=== PATIENT | male | born 1960 | race Caucasian/White ===

== ENCOUNTER 2019-02-01 12:16 | Emergency (ER) | payer OTHER ==
--- NOTE | 2019-02-01 12:54 | ER Document Report ---
ED Medical Screen (RME) - General Chief Complaint: Cold Symptoms Stated Complaint: NAUSEA/FEVER Time Seen by Provider: 02/01/19 12:37 Primary Care Provider: CARLO RIOS [Primary Care Provider] - Follow up as needed Notes: 58-year-old male presents to the emergency department for cough and fever x1 week. Patient states that his symptoms started last Sunday, they eased off on Sunday, and then returned on Sunday/Sunday/, only to ease off on Sunday and returning today. Patient states he has had fevers, uncontrollable shakes, persistent cough, and cold-like symptoms. Patient states that he is not a heavy drinker, last drink 10 days ago, and states he only drinks 2 or 3 drinks at a time and not daily. When pressed for confirmation patient said that he is not a daily heavy drinker. Patient states this tremulousness started 1 week ago and is new onset, never happening previous. Denies any nausea/vomiting/diarrhea, denies any acute shortness of breath or chest pain, denies any altered mental status or confusion, denies vision changes, denies acute weakness in any of his extremities, denies facial droop or slurred speech. EXAM: Nontoxic-appearing very slightly distressed. Lungs are clear to auscultation in all rosales. Heart rate 138 and regular, I reassessed after he been sitting for about 5 minutes and it was 120 and regular. I have greeted and performed a rapid initial assessment of this patient. A comprehensive ED assessment and evaluation of the patient, analysis of test results and completion of medical decision making process will be conducted by an additional ED providers. Past Medical History - Social History Chew tobacco use (# tins/day): No Frequency of alcohol use: None Drug Abuse: None Renal/ Medical History: Denies: Hx Peritoneal Dialysis Physical Exam - Vital signs Vitals: Temp Pulse Resp BP Pulse Ox 99.3 F 109 H 20 140/77 H 97 02/01/19 12:02/01/19 12:02/01/19 12:02/01/19 12:02/01/19 12:21 Course - Vital Signs Vital signs: Temp Pulse Resp BP Pulse Ox 99.3 F 109 H 20 140/77 H 97 02/01/19 12:02/01/19 12:02/01/19 12:21 02/01/19 12:21 02/01/19 12:21 Doctor's Discharge - Discharge [facility]errals: [facility] [[facility]] - Follow up as needed
[2019-02-01] MEDS ORDERED: THIAMINE HCL 100 MG in NORMAL SALINE 50 ML IV ONE ×2 (12:56→14:00)
[2019-02-01] MEDS ORDERED: NORMAL SALINE 1000 ML 1,000 ML IV ONE ×2 (12:57→13:51)
--- NOTE | 2019-02-01 13:24 | RADIOLOGY REPORT (SQ) ---
EXAM DESCRIPTION: CT HEAD WITHOUT COMPLETED DATE/TIME: 02/01/2019 1:14 pm REASON FOR STUDY: new onset generalized tremors COMPARISON: None. TECHNIQUE: Axial images acquired through the brain without intravenous contrast. Images reviewed wi th bone, brain and subdural windows. Images stored on PACS. All CT scanners at this facility use dose modulation, iterative reconstruction, and/or weight based d osing when appropriate to reduce radiation dose to as low as reasonably achievable (ALARA). [facility]: Dose Right [facility]: CareDose [facility]: Dose Right [facility]: Teradose 4D [facility]: [employer] RADIATION DOSE: CT Rad equipment meets quality standard of care and radiation dose reduction techniq ues were employed. CTDIvol: 53.2 mGy. DLP: 991 mGy-cm. mGy. LIMITATIONS: None. FINDINGS: VENTRICLES: Normal size and contour. CEREBRUM: No mass effect. No hemorrhage. No midline shift. Normal sheehan/white matter differentiatio n. No evidence for acute territorial infarction. CEREBELLUM: No mass effect. No hemorrhage. No alteration of density. No evidence for acute infarct ion. EXTRAAXIAL SPACES: No fluid collections. ORBITS AND GLOBE: Symmetrical contour of the globes. CALVARIUM: No depressed skull fracture. PARANASAL SINUSES: No air-fluid level. SOFT TISSUES: No hematoma. IMPRESSION: NO ACUTE INTRACRANIAL IMAGING FINDINGS. EVIDENCE OF ACUTE STROKE: NO. COMMENT: Quality ID # [id number]: Final reports with documentation of one or more dose reduction techniques (e.g., Automated exposure control, adjustment of the mA and/or kV according to patient size, use of iterative reconstruction technique) TECHNICAL DOCUMENTATION: JOB ID: [id number] [employer]- All Rights Reserved Reading location - IP/workstation name: [email or web address]
[2019-02-01] MEDS ORDERED: FOLIC ACID 1 MG TABLET PO ONE (13:51)
[2019-02-01] MEDS ORDERED: ACETAMINOPHEN 325 MG TABLET PO ONE (13:52)
[2019-02-01] MEDS ORDERED: IBUPROFEN 600 MG TABLET PO ONE (13:52)
[2019-02-01 14:11] LABS: ABSOLUTE LYMPHOCYTES (AUTO) 0.7 10^3/uL (0.5-4.7); ABSOLUTE MONOCYTES (AUTO) 0.8 10^3/uL (0.1-1.4); ABSOLUTE NEUT (AUTO) 10.5 10^3/uL (1.7-8.2); BASOPHILS % (AUTO) 0.2 % (0-2); EOSINOPHILS % (AUTO) 0.1 % (0-6); HEMATOCRIT 44.5 % (37.9-51.0); HEMOGLOBIN 15.4 g/dL (13.5-17.0); LYMPHOCYTES % (AUTO) 5.6 % (13-45); MEAN CORPUSCULAR HGB CONC 34.5 g/dL (32.0-36.0); MEAN CORPUSCULAR VOLUME 93 fl (80-97); MONOCYTES % (AUTO) 6.6 % (3-13); PLATELET COUNT 268 10^3/uL (150-450); RED BLOOD COUNT 4.81 10^6/uL (4.35-5.55); RED CELL DISTRIBUTION WIDTH 12.6 % (11.5-14.0); SEGMENTED NEUTROPHILS % (AUTO) 87.5 % (42-78); TOTAL CELLS COUNTED % (AUTO) 100 %; WHITE BLOOD COUNT 12.1 10^3/uL (4.0-10.5)
[2019-02-01 14:30] LABS: ALBUMIN 3.8 g/dL (3.5-5.0); ALCOHOL < 10 mg/dL (NONE DETECTED); ALKALINE PHOSPHATASE 116 U/L (38-126); ANION GAP 13 (5-19); ASPARTATE AMINO TRANSFERASE 35 U/L (17-59); BILIRUBIN,DIRECT 0.4 mg/dL (0.0-0.4); BILIRUBIN,TOTAL 1.2 mg/dL (0.2-1.3); BLOOD UREA NITROGEN 27 mg/dL (7-20); CALCIUM 9.4 mg/dL (8.4-10.2); CARBON DIOXIDE 26 mmol/L (22-30); CHLORIDE 99 mmol/L (98-107); GLUCOSE 124 mg/dL (75-110); POTASSIUM 3.8 mmol/L (3.6-5.0); TOTAL PROTEIN 6.6 g/dL (6.3-8.2)
[2019-02-01 14:43] LABS: APPEARANCE,URINE CLEAR; BILIRUBIN,URINE SMALL (NEGATIVE); COLOR,URINE AMBER; GLUCOSE, URINE NEGATIVE (NEGATIVE); KETONES,URINE NEGATIVE (NEGATIVE); LEUKOCYTE ESTERASE,URINE NEGATIVE (NEGATIVE); NITRITE,URINE NEGATIVE (NEGATIVE); PROTEIN,URINE 100 mg/dL (NEGATIVE)
--- NOTE | 2019-02-01 15:12 | RADIOLOGY REPORT (SQ) ---
EXAM DESCRIPTION: CHEST 2 VIEWS COMPLETED DATE/TIME: 02/01/2019 2:42 pm REASON FOR STUDY: persistent cough x 1 week COMPARISON: None. EXAM PARAMETERS: NUMBER OF VIEWS: two views TECHNIQUE: Digital Frontal and Lateral radiographic views of the chest acquired. RADIATION DOSE: NA LIMITATIONS: none FINDINGS: LUNGS AND PLEURA: Minimal heterogeneous opacity of the left lung base. No pleural effusion . MEDIASTINUM AND HILAR STRUCTURES: No masses or contour abnormalities. HEART AND VASCULAR STRUCTURES: Heart normal size. No evidence for failure. BONES: No acute findings. HARDWARE: None in the chest. OTHER: No other significant finding. IMPRESSION: Minimal heterogeneous opacity of the left lung base, which may reflect developing airspa ce disease or alternately scarring or atelectasis. Consider follow-up radiographs in 1 to 2 days to evaluate for interval evolution. TECHNICAL DOCUMENTATION: JOB ID: [id number] [employer]- All Rights Reserved Reading location - IP/workstation name: [email or web address]
--- NOTE | 2019-02-01 15:32 | ER Document Report ---
ED Respiratory Problem - General Chief Complaint: Cold Symptoms Stated Complaint: NAUSEA/FEVER and cough Time Seen by Provider: 02/01/19 12:37 [facility] Care Provider: [facility] [[facility]] - Follow up as needed - HPI Patient complains to provider of: Cough. No: Asthma, Chest pain, CHF, COPD, H urts to breath, Short of breath, Other Onset: Last week Duration: Continuous Initiating Event: No: Allergy, Aspiration/Choking, Exertion, Exposure to chemicals, Exposure to dust, Exposure to fumes, Exposure to mold, Exposure to smoke, Out of meds, Sports/exercise, URI, Other Quality of pain: denies: No pain, Achy, Burning, Cramping, Dull, Fullness, Pressure, Sharp, Stabbing, Throbbing, Other Chest pain/discomfort: denies: Center, Constant, Heaviness, Intermittent, Left, Pain, Radiates to arm, Radiates to back, Radiates to jaw, Right, Tightness, Worse with deep breaths Cough: Productive - yellow Sputum color: Yellow Associated symptoms: Cough, Fever. denies: None, Ankle/leg swelling, Allergy /hay fever, Anxiety, Bloody cough, Chest pain/discomfort, Chills, Congestion, Dental decay, Difficulty breathing, Earache, Extertional dyspnea, Facial pain, Headache, Heart racing, Hoarseness, Hurts to breathe, Hyperventilation, Jaw pain, Leg/calf/joint pain, Muscle spasms, Orthopnea, PND, Runny nose, Sinus pain/pressure, Short of breath, Sore Throat, Sweaty, Tingling face, Tingling hands, Unable to swallow, Toothache, Wheezing, Other Notes: Patient is a 58-year-old healthy individual really no medical problems came in today with 5-day history of productive cough of yellow sputum. And subjective fever and chills. He is also had a mild frontal headache but denies any chest pain neck pain abdominal pain vomiting diarrhea or other complaints. - Related Data Allergies/Adverse Reactions: No Known Allergies Allergy (Verified 02/01/19 13:34) Past Medical History - Social History Smoking Status: Current Every Day Smoker Chew tobacco use (# tins/day): No Frequency of alcohol use: Occasional Drug Abuse: None Family History: None Patient has suicidal ideation: No Patient has homicidal ideation: No Renal/ Medical History: Denies: Hx Peritoneal Dialysis Past Surgical History: Reports: Hx Orthopedic Surgery - bilat shoulders, R knee Review of Systems - Review of Systems Constitutional: Chills, Fever EENT: denies: No symptoms reported, See HPI, Eye pain, Eye discharge, Blurred vision, Tearing, Double vision, Ear pain, Ear discharge, Nose pain, Nose congest ion, Nose discharge, Sinus pressure, Sinus discharge, Throat pain, Difficulty swallowing, Throat swelling, Mouth pain, Mouth swelling, Dental problem, Vertigo, Other Cardiovascular: denies: No symptoms reported, See HPI, Chest pain, Palpitations, Heart racing, Orthopnea, Dyspnea, Syncope, Dizziness, Lightheaded, Edema, Other, Paroxysmal Nocturnal Dysp Respiratory: Cough Gastrointestinal: denies: No symptoms reported, See HPI, Abdomen distended, Abdominal pain, Diarrhea, Nausea, Vomiting, Constipation, Blood streaked bowels, Poor appetite, Poor fluid intake, Blood in vomit, Black stools, Rectal bleeding, Last bowel movement, Fecal incontinence, Other Genitourinary: denies: No symptoms reported, See HPI, Burning, Dysuria, Discharge, Frequency, Flank pain, Hematuria, Incontinence, Pain, Urgency, Retention, Other Male Genitourinary: denies: No symptoms reported, See HPI, Erectile dysfunction, Testicular pain, Penile discharge, Other Neurological/Psychological: denies: No symptoms reported, See HPI, Confusion, Dementia, Depression, Hallucinations, Anxiety, Homicidal ideation, Sensory change, Weakness, Gait changes, Loss of power, Paralysis, Seizure, Lost consciousness, Headaches, Speech impairment, Numbness, Suicidal ideation, Tingling, Tremor, Other Physical Exam - Vital signs Vitals: Temp Pulse Resp BP Pulse Ox 99.3 F 109 H 20 140/77 H 97 02/01/19 12:21 02/01/19 12:21 02/01/19 12:21 02/01/19 12:21 02/01/19 12:21 Notes: PHYSICAL EXAMINATION: GENERAL: Well-appearing, well-nourished and in no acute distress. HEAD: Atraumatic, normocephalic. Neck supple no meningismus EYES: Pupils equal round and reactive to light, extraocular movements intact, sclera anicteric, conjunctiva are normal. ENT: nares patent, oropharynx clear without exudates. Moist mucous membranes. NECK: Normal range of motion, supple without lymphadenopathy LUNGS: Rhonchi heard in the left base no wheezes Rales. No respiratory distress HEART: Regular rate and rhythm without murmurs ABDOMEN: Soft, nontender, normoactive bowel sounds. No guarding, no rebound. No masses appreciated. EXTREMITIES: Normal range of motion, no pitting or edema. No cyanosis. NEUROLOGICAL: No focal neurological deficits. Moves all extremities spontaneously and on command. PSYCH: Normal mood, normal affect. SKIN: Warm, Dry, normal turgor, no rashes or lesions noted. Course - Vital Signs Vital signs: Temp Pulse Resp BP Pulse Ox 103.1 F H 109 H 20 140/77 H 97 02/01/19 13:40 02/01/19 12:21 02/01/19 12:21 02/01/19 12:21 02/01/19 12:21 - Laboratory Result Diagrams: 02/01/19 13:51 02/01/19 13:51 Laboratory results interpreted by me: 02/01/19 02/01/19 02/01/19 13:51 13:51 14:20 WBC 12.1 H Lymph % (Auto) 5.6 L Absolute Neuts (auto) 10.5 H Seg Neutrophils % 87.5 H BUN 27 H Glucose 124 H Urine Protein 100 H Urine Bilirubin SMALL H Urine Urobilinogen 4.0 H - Diagnostic Test Radiology reviewed: Image reviewed, Reports reviewed - EKG Interpretation by Me Rate: Tachycardia Rhythm: No: NSR, SVT, Arrthymia, A.Fib, A.Flutter, with a 2:1 Block, V.Tach, Torsades, V. Fib, MAT, PVC's, APC's, Other [place]/QRS: No: Right axis deviation, Left axis deviation, RBBB, LBBB, IVCD, LAHB/LAFB, LPHB/LPFB, Bifasicular block Voltage: No: Increased voltage, Consistant with LVH, Decreased voltage, Throughout, Limb leads P Waves: No: ADE, LAE, Absent, AV Dissociation, Other Heart block present: No: 1st Degree, Mobitz 1, Mobitz 2, CHB (3rd degree block) - Transfer of Care Notes: 02/01/19 15:30 Patient has an O2 sat of about 95% on room air. I do believe he has a left lower lobe pneumonia I will start him on some Levaquin I will also give him some Hycodan syrup for his cough tell him to follow-up with his regular doctor Discharge - Discharge Clinical Impression: Left lower lobe pneumonia Condition: Good Disposition: HOME, SELF-CARE Instructions: Pneumonia ([facility]) Additional Instructions: Increased shortness of breath cough or condition worsens Prescriptions: Hydrocodone Bit/Homatropine [Hycodan Syrup 5-1.5 mg/5 ml Ud Cup] 5 ml PO Q4HP PRN #120 ml PRN Reason: Levofloxacin [Levaquin 750 mg Tablet] 750 mg PO DAILY #5 tablet Referrals: [facility] [[facility]] - Follow up as needed
[2019-02-01 15:50] VITALS: BP 111/72
--- NOTE | 2019-02-02 18:43 | EKG REPORT ---
SEVERITY:- BORDERLINE ECG - SINUS TACHYCARDIA BORDERLINE T ABNORMALITIES, INFERIOR LEADS : Confirmed by: eNhemias Blackwood 02-Feb-2019 18:41:23
== END 2019-02-01 15:47 | disposition home or self-care (01) ==
LOC: ER 12:16
DX: J18.9 Pneumonia, unspecified organism (principal); R05 Cough; R50.9 Fever, unspecified; R51 Headache; F17.200 Nicotine dependence, unspecified, uncomplicated; R00.0 Tachycardia, unspecified
CPT/HCPCS: 93005; 99284; 96360; 36415; 87040; 80307; 85025; 87077; 80053; 81001; 83605; 71046; 70450; 93010; J7030